=== PATIENT | female | born 1945 ===

== ENCOUNTER 2018-03-17 09:53 | Emergency (ER) | payer MEDICARE, MEDICAID ==
[2018-03-17 10:20] VITALS: O2SAT 98
--- NOTE | 2018-03-17 11:18 | ED PDOC ---
HPI: CCC, URI, Sore Throat Time Seen by Provider: 03/17/18 10:34 Chief Complaint (Nursing): ENT Problem Chief Complaint (Provider): ENT Problem History Per: Patient History/Exam Limitations: no limitations Onset/Duration Of Symptoms: Days (x1), Waxing/Waning Location Of Pain: Ear(s) (right) Ear Symptoms: Right: Ear Pain Additional Complaint(s): 73 year old female with a medical history of DM, HTN and hyperthyroidism presents to the ED with right ear and right jaw pain onset yesterday. Patient denies fever, URI, headache, sore throat, difficulty swallowing, difficulty breathing, rash, or other medical complaints. PMD: DR. Mckeon Past Medical History Reviewed: Historical Data, Nursing Documentation, Vital Signs Vital Signs: Last Vital Signs Temp 99.7 F H 03/17/18 11:33 Pulse 84 03/17/18 11:33 Resp 17 03/17/18 11:33 BP 136/78 03/17/18 11:33 Pulse Ox 98 03/17/18 11:46 - Medical History PMH: Diabetes, HTN, Hyperthyroidism - Surgical History Surgical History: No Surg Hx - Family History Family History: States: Unknown Family Hx - Home Medications Home Medications: Ambulatory Orders Medication Instructions Recorded Acetaminophen/Oxycodone Hydr 1 tab PO Q6H PRN #8 tab 06/17/14 [Percocet 325 mg-5 mg] Amoxicillin 500 mg PO TID #30 tablet 03/17/18 Neomycin/Polymyxin/Hydrocort 4 drop AD QID #1 bottle 03/17/18 [Cortisporin Otic Soln] - Allergies Allergies/Adverse Reactions: Allergies Allergy/AdvReac Type Severity Reaction Status Date / Time shellfish derived Allergy ANAPHYLAXIS Verified 03/17/18 11:16 Review of Systems ROS Statement: Except As Marked, All Systems Reviewed And Found Negative ENT: Positive for: Ear Pain, Other (jaw pain) Physical Exam - Reviewed Nursing Documentation Reviewed: Yes Vital Signs Reviewed: Yes - Physical Exam Comments: GENERAL APPEARANCE: Patient is awake, alert, oriented x 3, in no acute distress. SKIN: Warm, dry; (-) cyanosis. ENMT: Canals : (-) cerumen impaction (+) right ear canal mild edema, TMs: (-) TM bulging and (-) erythema, (-)effusion, (-) perforation,(-) vesicles, other ear normal. (+) pain on palpation to the tragus, Frontal / maxillary sinuses : ( -) tenderness. (-) TMJ tenderness (+) mild tenderness and swelling to right submandibular proximal to TMJ. Pharynx: Clear; (-) erythema, (-) exudate. Airway patent: (-) stridor. NECK: (-) stiffness, (-) tenderness, (-) lymphadenopathy. LUNGS: clear, (-) wheezing, (-) rhonchi. CARDIAC: RRR, (-) murmurs, (-) gallops. - ECG O2 Sat by Pulse Oximetry: 98 (RA) Pulse Ox Interpretation: Normal Medical Decision Making Medical Decision Making: Initial Impression: Consider otitis externa, sialadenitis Advised to follow up with primary care physician in 1-2 days without fail. Advised to take medication as prescribed. Return to the emergency room at any time for any new or worsening symptoms. Patient states she fully agrees with and understands discharge instructions. States that she agrees with the plan and disposition. Verbalized and repeated discharge instructions and plan. I have given the patient opportunity to ask any additional questions. Scribe Attestation: Documented by Isabelle Mcclure, acting as a scribe for Maricarmen Pompa PA-C Provider Scribe Attestation: All medical record entries made by the Scribe were at my direction and personally dictated by me. I have reviewed the chart and agree that the record accurately reflects my personal performance of the history, physical exam, medical decision making, and the department course for this patient. I have also personally directed, reviewed, and agree with the discharge instructions and disposition. Disposition - Clinical Impression Clinical Impression: Otitis externa - Patient ED Disposition Is Patient to be Admitted: No Counseled Patient/Family Regarding: Diagnosis, Need For Followup, Rx Given - Disposition Disposition: Routine/Home Disposition Time: 11:00 Condition: STABLE Additional Instructions: Take medication as prescribed. Follow up with your pmd in 2 days without fail. Return to the ER at any time for any new or worsening symptoms. Prescriptions: Amoxicillin 500 mg PO TID #30 tablet Neomycin/Polymyxin/Hydrocort [Cortisporin Otic Soln] 4 drop AD QID #1 bottle Instructions: Outer Ear Infection, Salivary Gland Infection Forms: [facility] (Burmese) - PA / WOOD TYPE FINISHER / Resident Statement MD/DO has reviewed & agrees with the documentation as recorded.
[2018-03-17 11:34] VITALS: BP 136/78; PULSE 84; RESP 17; TEMP 99.7
== END 2018-03-17 11:30 | disposition home or self-care (01) ==
LOC: H.ER 09:53
DX: H60.91 Unspecified otitis externa, right ear (principal); E11.9 Type 2 diabetes mellitus without complications; I10 Essential (primary) hypertension; E05.90 Thyrotoxicosis, unspecified without thyrotoxic crisis or storm

== ENCOUNTER 2018-08-27 10:11 | Emergency (ER) | payer MEDICARE, MEDICAID ==
[2018-08-27 10:16] VITALS: BP 163/78; PULSE 93; RESP 18; TEMP 98.5; O2SAT 98
--- NOTE | 2018-08-27 11:12 | ED PDOC ---
Lower Extremity Pain/Injury Time Seen by Provider: 08/27/18 10:27 Chief Complaint (Nursing): Lower Extremity Problem/Injury Chief Complaint (Provider): Left leg pain History Per: Patient History/Exam Limitations: no limitations Onset/Duration Of Symptoms: Days (x4) Current Symptoms Are (Timing): Still Present Additional Complaint(s): 73 year old female presents to the ED with left leg pain for 4 days. Patient denies falls or trauma. She states pain is worse at night and describes pain as throbbing. She states she saw PMD for the same complaints on Saturday and was diagnosed with sciatica. She took Tylenol at home with no relief with last dose yesterday. 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 She denies fever, cough, SOB, calf tenderness, pedal edema, rash, or prolonged immobility. PMD: Dr. Rodriguez Past Medical History Reviewed: Historical Data, Nursing Documentation, Vital Signs Vital Signs: Last Vital Signs Temp 98.5 F 08/27/18 10:14 Pulse 93 H 08/27/18 10:14 Resp 18 08/27/18 10:14 BP 163/78 H 08/27/18 10:14 Pulse Ox 98 08/27/18 10:14 - Medical History PMH: Diabetes, HTN, Hyperthyroidism Other PMH: Gout - Surgical History Other surgeries: Hysterectomy and biopsy of the left breast - Family History Family History: States: Unknown Family Hx - Home Medications Home Medications: Ambulatory Orders Medication Instructions Recorded Acetaminophen/Oxycodone Hydr 1 tab PO Q6H PRN #8 tab 06/17/14 [Percocet 325 mg-5 mg] Neomycin/Polymyxin/Hydrocort 4 drop AD QID #1 bottle 03/17/18 [Cortisporin Otic Soln] RX: Amoxicillin 500 mg PO TID #30 tablet 03/17/18 Acetaminophen [Acetaminophen 8 650 mg PO Q8 PRN #21 tablet.er 08/27/18 Hour] Meloxicam [Mobic] 15 mg PO DAILY #10 tab 08/27/18 Acetaminophen/Oxycodone Hydr 1 - 2 tab PO Q6 PRN #15 tab 08/29/18 [Oxycodone and Acetaminophen 325 mg-2.5 mg] - Allergies Allergies/Adverse Reactions: Allergies Allergy/AdvReac Type Severity Reaction Status Date / Time shellfish derived Allergy ANAPHYLAXIS Verified 03/17/18 11:16 Review of Systems ROS Statement: Except As Marked, All Systems Reviewed And Found Negative Constitutional: Negative for: Fever Respiratory: Negative for: Cough, Shortness of Breath Musculoskeletal: Positive for: Leg Pain (left). Negative for: Other (calf tenderness or pedal edema) Skin: Negative for: Rash Physical Exam - Reviewed Nursing Documentation Reviewed: Yes Vital Signs Reviewed: Yes - Physical Exam Comments: GENERAL APPEARANCE: Patient is awake, alert, oriented x 3, in no acute distress. Resting comfortably. SKIN: Warm, dry; (-) cyanosis. CHEST AND RESPIRATORY: (-) rales, (-) rhonchi, (-) wheezes; breath sounds equal bilaterally. Respirations even and nonlabored. HEART AND CARDIOVASCULAR: (-) irregularity LEFT LEG: (+) tenderness to the distal left thigh; decreased ROM at the knee secondary to pain. (-) edema, (-) erythema, (-) warmth to the lower extremity, (-) pedal edema (-) calf tenderness; sensation intact throughout; (+) distal pulses. Knee: (-) anterior and posterior drawer sign (-) instability on valgus or varus stress. Remainder of lower extremity nontender with FROM NEURO AND PSYCH: Mental status as above. Gait: steady in ED. Speech: clear. (-) facial asymmetry (-) aphasia. - ECG O2 Sat by Pulse Oximetry: 98 (RA) Pulse Ox Interpretation: Normal Medical Decision Making Medical Decision Making: Initial Impression: acute leg pain, likely musculoskeletal Initial Plan: --Left knee X-ray 3 views --Toradol 15mg IM 1210 Knee XR reviewed, radiology report follows Date of service: 08/27/2018 PROCEDURE: Left Knee Radiographs. HISTORY: Pain. COMPARISON: None. FINDINGS: BONES: No acute fracture. JOINTS: Unremarkable. JOINT EFFUSION: None. OTHER FINDINGS: Small quadriceps tendon enthesophyte. IMPRESSION: No demonstrated fracture or dislocation. On re-evaluation, patient reports improvement of symptoms. On exam, patient remains AAOx3, in no acute distress. Vitals stable. Lab/Diagnostic results d/w the patient in great detail. Diagnosis of musculoskeletal leg pain d/w the patient. Based on history, exam and diagnostic results, plan will be for outpatient follow up with PMD/ortho. Patient instructed to follow-up with pmd / referral provided / the clinic in 1- 2 days without fail. Advised to take medication as prescribed. Return to the emergency room at any time for any new or worsening symptoms. Patient states she fully agrees with and understands discharge instructions. States that she agrees with the plan and disposition. Verbalized and repeated discharge instructions and plan. I have given the patient opportunity to ask any additional questions. ---- Scribe Attestation: Documented by Micheal Mcclure acting as a scribe for Brooke CULP. Provider Scribe Attestation: All medical record entries made by the Scribe were at my direction and personally dictated by me. I have reviewed the chart and agree that the record accurately reflects my personal performance of the history, physical exam, medical decision making, and the department course for this patient. I have also personally directed, reviewed, and agree with the discharge instructions and disposition. Disposition - Clinical Impression Clinical Impression: Musculoskeletal pain of left lower extremity - Patient ED Disposition Is Patient to be Admitted: No Counseled Patient/Family Regarding: Studies Performed, Diagnosis, Need For Followup, Rx Given - Disposition Referrals: Caty Cheema MD [Staff Provider] - Jennifer Barker [Other] Disposition: Routine/Home Disposition Time: 12:10 Condition: STABLE Additional Instructions: The emergency medical care you received today was directed at your acute symptoms. If you were prescribed any medication, please fill it and take as directed. It may take several days for your symptoms to resolve. Return to the Emergency Department if your symptoms worsen, do not improve, or if you have any other problems. Please contact your doctor in 2 days for re-evaluation and follow up / or call one of the physicians/clinics you have been referred to that are listed on the Patient Visit Information form that is included in your discharge packet. Bring any paperwork you were given at discharge with you along with any medications you are taking to your follow up visit. Our treatment cannot replace ongoing medical care by a primary care provider (PCP) outside of the emergency department. Prescriptions: Acetaminophen [Acetaminophen 8 Hour] 650 mg PO Q8 PRN #21 tablet.er PRN Reason: Pain, Moderate (4-7) Meloxicam [Mobic] 15 mg PO DAILY #10 tab Instructions: Sciatica, Muscle and Bone Pain (DC), Lower Extremity Muscle Strain, Sciatica Exercises, Knee Pain Forms: [facility] (Turkish) Print Language: MEXICAN - POA Present On Arrival: None
--- NOTE | 2018-08-27 12:47 | RAD ---
Date of service: 08/27/2018 PROCEDURE: Left Knee Radiographs. HISTORY: Pain. COMPARISON: None. FINDINGS: BONES: No acute fracture. JOINTS: Unremarkable. JOINT EFFUSION: None. OTHER FINDINGS: Small quadriceps tendon enthesophyte. IMPRESSION: No demonstrated fracture or dislocation.
== END 2018-08-27 12:25 | disposition home or self-care (01) ==
LOC: H.ER 10:11 → SUPCPDRO 10:11 → H.ER 12:25
DX: M79.605 Pain in left leg (principal); E05.90 Thyrotoxicosis, unspecified without thyrotoxic crisis or storm; E11.9 Type 2 diabetes mellitus without complications; I10 Essential (primary) hypertension
CPT/HCPCS: 73562; 96372; 99283; J1885

== ENCOUNTER 2018-08-29 09:59 | Emergency (ER) | payer MEDICARE, MEDICAID ==
[2018-08-29 10:06] VITALS: BMI 27.3
[2018-08-29 10:07] VITALS: BP 142/82; PULSE 92; RESP 20; TEMP 98.5; O2SAT 97
[2018-08-29] MEDS ORDERED: Oxycodone/Acetaminophen 5/325 mg Tab PO ONE (11:03)
[2018-08-29] MEDS ORDERED: Oxycodone/Acetaminophen 5/325 mg Tab ONE (11:22)
[2018-08-29 11:23] LABS: BASO % 0.3 % (0.0-2.0); EOS # 0.1 K/uL (0.0-0.7); EOS % 1.7 % (0.0-4.0); HEMOGLOBIN 12.4 g/dL (12.0-16.0); LYMPH # 2.2 K/uL (1.0-4.3); LYMPH % 32.9 % (20.0-40.0); MEAN CELL VOLUME 96.7 fl (81.0-99.0); MEAN CORPUSCULAR HGB CONC 34.1 g/dL (33.0-37.0); MEAN PLATELET VOLUME 7.5 fl (7.2-11.7); MONO # 0.5 K/uL (0.0-0.8); MONO % 7.1 % (0.0-10.0); NEUT # 3.9 K/uL (1.8-7.0); RBC 3.75 Mil/uL (3.80-5.20); RED CELL DISTRIBUTION WIDTH 14.2 % (11.5-14.5); WHITE BLOOD COUNT 6.8 K/uL (4.8-10.8)
--- NOTE | 2018-08-29 11:26 | ED PDOC ---
Lower Extremity Pain/Injury Time Seen by Provider: 08/29/18 10:29 Chief Complaint (Nursing): Lower Extremity Problem/Injury Chief Complaint (Provider): Left Leg Pain History Per: Patient History/Exam Limitations: no limitations Onset/Duration Of Symptoms: Days (one week), Worse Since Current Symptoms Are (Timing): Constant Severity: Severe Additional Complaint(s): 73 year old female with a history of gout, HTN and diabetes presents to the ED for an evaluation of left leg pain onset for one week that is constant. The pain becomes worse when sitting or with movement. She states the pain is serve that she could not sleep and it is radiating to her left buttock. Patient took Tylenol for few days for relief. She also visited her provider 3 times last week and was prescribed Meloxicam. It is her 2nd visit to the ER for the same concern. Otherwise, she denies weakness, numbness, fever or any other symptoms. [facility] Past Medical History Reviewed: Historical Data, Nursing Documentation, Vital Signs Vital Signs: Last Vital Signs Temp 98.5 F 08/29/18 10:06 Pulse 92 H 08/29/18 10:06 Resp 20 08/29/18 10:06 BP 142/82 08/29/18 10:06 Pulse Ox 97 08/29/18 10:06 - Medical History PMH: Diabetes, HTN, Hyperthyroidism - Surgical History Surgical History: - Family History Family History: States: Unknown Family Hx - Social History Alcohol: None Drugs: Denies - Home Medications Home Medications: Ambulatory Orders Medication Instructions Recorded Acetaminophen/Oxycodone Hydr 1 tab PO Q6H PRN #8 tab 06/17/14 [Percocet 325 mg-5 mg] Amoxicillin 500 mg PO TID #30 tablet 03/17/18 Neomycin/Polymyxin/Hydrocort 4 drop AD QID #1 bottle 03/17/18 [Cortisporin Otic Soln] Acetaminophen [Acetaminophen 8 650 mg PO Q8 PRN #21 tablet.er 08/27/18 Hour] Meloxicam [Mobic] 15 mg PO DAILY #10 tab 08/27/18 Acetaminophen/Oxycodone Hydr 1 - 2 tab PO Q6 PRN #15 tab 08/29/18 [Oxycodone and Acetaminophen 325 mg-2.5 mg] - Allergies Allergies/Adverse Reactions: Allergies Allergy/AdvReac Type Severity Reaction Status Date / Time shellfish derived Allergy ANAPHYLAXIS Verified 03/17/18 11:16 Review of Systems ROS Statement: Except As Marked, All Systems Reviewed And Found Negative Constitutional: Negative for: Fever Cardiovascular: Negative for: Chest Pain Respiratory: Negative for: Cough, Shortness of Breath Gastrointestinal: Negative for: Nausea, Vomiting, Abdominal Pain, Diarrhea Musculoskeletal: Positive for: Leg Pain (left) Neurological: Negative for: Weakness, Numbness Physical Exam - Reviewed Nursing Documentation Reviewed: Yes Vital Signs Reviewed: Yes - Physical Exam Appears: Positive for: Well, Non-toxic, No Acute Distress Head Exam: Positive for: ATRAUMATIC, NORMAL INSPECTION, NORMOCEPHALIC Skin: Positive for: Normal Color, Warm, Dry Eye Exam: Positive for: EOMI, Normal appearance, PERRL Back: Negative for: Normal Inspection (tenderness on left lower back ) Extremity: Positive for: Normal ROM, Tenderness (left leg), Capillary Refill (less than 2 seonds). Negative for: Pedal Edema, Calf Tenderness, Deformity, Swelling Neurologic/Psych: Positive for: Alert, Oriented (x3), Gait (steady). Negative for: Motor/Sensory Deficits - Laboratory Results Result Diagrams: 08/29/18 11:17 08/29/18 11:17 - ECG O2 Sat by Pulse Oximetry: 97 (RA) Pulse Ox Interpretation: Normal - Progress Re-evaluation Time: 13:00 Condition: Re-examined, Improved Medical Decision Making Medical Decision Making: Time: 1103 Initial Impression: left leg and left back pain Differential Diagnosis: DVR, sciatica Initial Plan: BMP CBC W/ differential Erythrocyte Sedimentation Rate Percocet 5/325mg Duplex Lower Extremity Vein Bilat [US] Reevaluation Time:1230 HISTORY: left leg pain. PRIORS: None. FINDINGS: 2-D, color and duplex Doppler analysis of the lower extremity venous circulation using routine protocol from the femoral veins through the popliteal veins. 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 Venous compressibility: Normal. Flow and augmentation patterns: Normal. Visualized veins upper third of calf: Normal. Montalvo cyst: None. IMPRESSION: No sonographic or Doppler evidence for DVT in left lower extremity. Scribe Attestation: Documented by Dinorah Moore, acting as a scribe for Jens Mckeon MD Provider Scribe Attestation: All medical record entries made by the Scribe were at my direction and personally dictated by me. I have reviewed the chart and agree that the record accurately reflects my personal performance of the history, physical exam, medical decision making, and the department course for this patient. I have also personally directed, reviewed, and agree with the discharge instructions and disposition. Disposition - Clinical Impression Clinical Impression: Leg pain, Sciatica - Patient ED Disposition Is Patient to be Admitted: No Doctor Will See Patient In The: Office Counseled Patient/Family Regarding: Studies Performed, Diagnosis, Need For Followup - Disposition Referrals: [facility] [Outside] Disposition: Routine/Home Disposition Time: 13:45 Condition: GOOD Additional Instructions: Take percocet and meloxicam as instructed. Follow up with your PCP. HERLINDA HERNANDEZ, thank you for letting us take care of you today. Your provider was Jens Mckeon MD and you were treated for LEG PAIN. The emergency medical care you received today was directed at your acute symptoms. If you were prescribed any medication, please fill it and take as directed. It may take several days for your symptoms to resolve. Return to the Emergency Department if your symptoms worsen, do not improve, or if you have any other problems. Please contact your doctor or call one of the physicians/clinics you have been referred to that are listed on the Patient Visit Information form that is included in your discharge packet. Bring any paperwork you were given at [facility] with you along with any medications you are taking to your follow up visit. Our treatment cannot replace ongoing medical care by a primary care provider outside of the emergency department. Thank you for allowing the [facility] team to be part of your care today. If you had an X-Ray or CT scan: A Radiologist will review the ED reading if any change in treatment is needed we will contact you. If you had a blood, urine, or wound culture: It will take several days for the results, if any change in treatment is needed we will contact you. If you had an STI test: It will take 48 hours for the results. Please call after 1 week if you have not heard back. Prescriptions: Acetaminophen/Oxycodone Hydr [Oxycodone and Acetaminophen 325 mg-2.5 mg] 1 - 2 tab PO Q6 PRN #15 tab PRN Reason: Pain, Severe (8-10) Instructions: Sciatica (DC)
[2018-08-29 11:36] LABS: BLOOD UREA NITROGEN 26 mg/dl (7-17); CALCIUM 10.6 mg/dL (8.4-10.2); GFR NON-AFRICAN AMERICAN > 60
--- NOTE | 2018-08-29 12:34 | US ---
Date of service: 08/29/2018 HISTORY: left leg pain. PRIORS: None. FINDINGS: 2-D, color and duplex Doppler analysis of the lower extremity venous circulation using routine protocol from the femoral veins through the popliteal veins. 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 Venous compressibility: Normal. Flow and augmentation patterns: Normal. Visualized veins upper third of calf: Normal. Montalvo cyst: None. IMPRESSION: No sonographic or Doppler evidence for DVT in left lower extremity.
== END 2018-08-29 14:06 | disposition home or self-care (01) ==
LOC: H.ER 09:59
DX: M79.605 Pain in left leg (principal); M54.30 Sciatica, unspecified side; E05.90 Thyrotoxicosis, unspecified without thyrotoxic crisis or storm; E11.9 Type 2 diabetes mellitus without complications; I10 Essential (primary) hypertension

== ENCOUNTER 2018-11-28 11:24 | Emergency (ER) | payer MEDICAID, MEDICARE ==
[2018-11-28 11:29] VITALS: BMI 26.7
--- NOTE | 2018-11-28 12:38 | RAD ---
Date of service: 11/28/2018 HISTORY: Palpitations COMPARISON: 06/17/2014. FINDINGS: LUNGS: No active pulmonary disease. PLEURA: No significant pleural effusion identified, no pneumothorax apparent. CARDIOVASCULAR: No radiographic findings to suggest acute or significant cardiovascular disease. Atherosclerotic calcifications identified primarily aortic arch. OSSEOUS STRUCTURES: No significant abnormalities. VISUALIZED UPPER ABDOMEN: Normal. OTHER FINDINGS: None. IMPRESSION: No active disease. No significant interval change compared to the prior examination(s).
[2018-11-28 12:47] LABS: BASO % 0.3 % (0.0-2.0); EOS # 0.1 K/uL (0.0-0.7); EOS % 1.5 % (0.0-4.0); LYMPH # 1.5 K/uL (1.0-4.3); LYMPH % 23.6 % (20.0-40.0); MEAN CELL VOLUME 96.3 fl (81.0-99.0); MEAN CORPUSCULAR HEMOGLOBIN 33.3 pg (27.0-31.0); MEAN CORPUSCULAR HGB CONC 34.5 g/dL (33.0-37.0); MEAN PLATELET VOLUME 7.8 fl (7.2-11.7); MONO # 0.4 K/uL (0.0-0.8); MONO % 7.1 % (0.0-10.0); NEUT # 4.2 K/uL (1.8-7.0); NEUT % 67.5 % (50.0-75.0); NRBC % 0.1 % (0.0-0.0); RBC 3.6 Mil/uL (3.80-5.20); RED CELL DISTRIBUTION WIDTH 13.5 % (11.5-14.5); WHITE BLOOD COUNT 6.2 K/uL (4.8-10.8)
[2018-11-28 12:55] LABS: ALB/GLOB RATIO 1.1 (1.0-2.1); ALBUMIN 3.8 g/dL (3.5-5.0); ALT/SGPT 19 U/L (9-52); AST/SGOT 28 U/L (14-36); BLOOD UREA NITROGEN 15 mg/dl (7-17); CALCIUM 10.5 mg/dL (8.4-10.2); GFR NON-AFRICAN AMERICAN > 60
[2018-11-28 13:06] LABS: PARTIAL THROMBOPLASTIN TIME 34.3 Seconds (25.6-37.1)
[2018-11-28 13:13] LABS: D DIMER < 200 ng/mlDDU (0-230)
--- NOTE | 2018-11-28 13:39 | ED PDOC ---
HPI: Chest Pain Time Seen by Provider: 11/28/18 11:36 Chief Complaint (Nursing): Palpitations Chief Complaint (Provider): Palpitations History Per: Patient History/Exam Limitations: no limitations Onset/Duration Of Symptoms: Days Current Symptoms Are (Timing): Still Present Additional Complaint(s): 73 y/o female with a PMHx of DM, HTN and Gout presents to the ED for evaluation of on and off palpitations, onset three weeks ago. Patient reports of experiencing palpitations that persisted since yesterday associated with shakiness and shortness of breath. Otherwise, patient denies any recent travel. Of note, patient was recently evaluated by Pulmonolgist for small abnormal seen on scan but found to be normal. PMD: Clinic Past Medical History Reviewed: Historical Data, Nursing Documentation, Vital Signs Vital Signs: Last Vital Signs Temp 98.4 F 11/28/18 11:29 Pulse 110 H 11/28/18 11:29 Resp 17 11/28/18 11:29 BP 160/72 H 11/28/18 11:29 Pulse Ox 96 11/28/18 11:29 - Medical History PMH: Diabetes, HTN, Hyperthyroidism, Hypothyroidism - Surgical History Surgical History: - Family History Family History: States: Unknown Family Hx - Social History Current smoker - smoking cessation education provided: No Alcohol: Occasional - Allergies Allergies/Adverse Reactions: Allergies Allergy/AdvReac Type Severity Reaction Status Date / Time shellfish derived Allergy ANAPHYLAXIS Verified 03/17/18 11:16 Review of Systems ROS Statement: Except As Marked, All Systems Reviewed And Found Negative Constitutional: Positive for: Other (SHAKINESS) Cardiovascular: Positive for: Palpitations Respiratory: Positive for: Shortness of Breath Physical Exam - Reviewed Nursing Documentation Reviewed: Yes Vital Signs Reviewed: Yes - Physical Exam Appears: Positive for: No Acute Distress Head Exam: Positive for: ATRAUMATIC, NORMOCEPHALIC Skin: Positive for: Normal Color, Warm, Dry Eye Exam: Positive for: Normal appearance, EOMI, PERRL Neck: Positive for: Normal, Painless ROM, Supple Cardiovascular/Chest: Positive for: Tachycardia. Negative for: Murmur Respiratory: Positive for: Normal Breath Sounds. Negative for: Respiratory Distress Gastrointestinal/Abdominal: Positive for: Normal Exam, Soft. Negative for: Tenderness Extremity: Positive for: Normal ROM. Negative for: Deformity Neurological/Psych: Positive for: Awake, Alert, Oriented. Negative for: Motor/Sensory Deficits - Laboratory Results Result Diagrams: 11/28/18 12:30 11/28/18 12:30 Lab Results: PT 11.0 Seconds (9.8-13.1) 11/28/18 12:30 INR 1.0 11/28/18 12:30 APTT 34.3 Seconds (25.6-37.1) 11/28/18 12:30 D-Dimer, Quantitative < 200 ng/mlDDU (0-230) 11/28/18 12:30 Troponin I < 0.0120 ng/mL (0.00-0.120) 11/28/18 12:30 Total Bilirubin 0.3 mg/dl (0.2-1.3) 11/28/18 12:30 AST 28 U/L (14-36) 11/28/18 12:30 ALT 19 U/L (9-52) 11/28/18 12:30 Alkaline Phosphatase 47 U/L (38-126) 11/28/18 12:30 Total Protein 7.4 G/DL (6.3-8.2) 11/28/18 12:30 Albumin 3.8 g/dL (3.5-5.0) 11/28/18 12:30 Globulin 3.6 gm/dL (2.2-3.9) 11/28/18 12:30 Albumin/Globulin Ratio 1.1 (1.0-2.1) 11/28/18 12:30 - ECG Interpretation Of ECG: NSR @ 92, LBBB. O2 Sat by Pulse Oximetry: 96 (RA) Pulse Ox Interpretation: Normal Medical Decision Making Medical Decision Making: Time: 1152 Plan: -- EKG -- CMP -- TSH -- Troponin I -- ED Urine Dipstick -- CBC with Differentials -- D Dimer -- PTT -- Prothrombin Time -- CXR Portable -- Glucose, Blood, POC -- Urinalysis Time: 1234 CXR RESULTS FINDINGS: LUNGS: No active pulmonary disease. PLEURA: No significant pleural effusion identified, no pneumothorax apparent. CARDIOVASCULAR: No radiographic findings to suggest acute or significant cardiovascular disease. Atherosclerotic calcifications identified primarily aortic arch. OSSEOUS STRUCTURES: No significant abnormalities. VISUALIZED UPPER ABDOMEN: Normal. OTHER FINDINGS: None. IMPRESSION: No active disease. No significant interval change compared to the prior examination(s). Scribe Attestation: Documented by Chandan Mann, acting as a scribe Chriss Edwards MD. Provider Scribe Attestation: All medical record entries made by the Scribe were at my direction and personally dictated by me. I have reviewed the chart and agree that the record accurately reflects my personal performance of the history, physical exam, medical decision making, and the department course for this patient. I have also personally directed, reviewed, and agree with the discharge instructions and disposition. Disposition - Clinical Impression Clinical Impression: Palpitations - Disposition Referrals: [facility] [Outside] Disposition: Routine/Home Disposition Time: 18:03 Condition: STABLE Instructions: Palpitations Forms: [facility] (Sinhala)
[2018-11-28 13:58] LABS: SQUAMOUS EPITHIAL 1 /hpf (0-5); URINE BACTERIA RARE (<OCC); URINE BILIRUBIN NEGATIVE (NEGATIVE); URINE BLOOD NEGATIVE (NEGATIVE); URINE CLARITY CLEAR (Clear); URINE COLOR YELLOW (YELLOW); URINE GLUCOSE (UA) NEG (NEGATIVE); URINE LEUKOCYTE ESTERASE MOD Leu/uL (Negative); URINE PROTEIN 30 mg/dL (NEGATIVE); URINE UROBILINOGEN 0.2-1.0 mg/dL (0.2-1.0)
[2018-11-28] MEDS ORDERED: Sodium Chloride 0.9% 1,000 ML IV STA (14:55)
[2018-11-28 18:14] VITALS: BP 152/73; PULSE 77; RESP 18; TEMP 98.3
--- NOTE | 2018-11-28 22:22 | CARD ---
APPROVED REPORT Date of service: 11/28/2018 EKG Measurement Heart [id number] <Conclusion> Normal sinus rhythm Left bundle branch block Abnormal ECG
[2018-12-01 10:26] VITALS: O2SAT 96
== END 2018-11-28 18:13 | disposition home or self-care (01) ==
LOC: H.ER 11:24
DX: R00.2 Palpitations (principal); E03.9 Hypothyroidism, unspecified; E05.90 Thyrotoxicosis, unspecified without thyrotoxic crisis or storm; E11.9 Type 2 diabetes mellitus without complications; I10 Essential (primary) hypertension; I44.7 Left bundle-branch block, unspecified; M10.9 Gout, unspecified
CPT/HCPCS: 71045; 80053; 81003; 82948; 84443; 84484; 85025; 85378; 85610; 85730; 93005; 99284; J7030